=== PATIENT | male | born 1985 | race Caucasian/White ===

== ENCOUNTER 2017-01-17 13:13 | Emergency (ER) | payer BC ==
[~2017-01-17 13:13] MED LIST: BENZONATATE PO; DOXYCYCLINE150 MG PO; FLEXERIL10 MG PO; IBUPROFEN800 MG PO; NAPROSYN500 MG PO; VICODIN PO
== END 2017-01-17 14:10 | disposition home or self-care (01) ==
LOC: CED 13:13
DX: T40.1X1A Poisoning by heroin, accidental (unintentional), initial encounter (principal); Y92.9 Unspecified place or not applicable; F19.90 Other psychoactive substance use, unspecified, uncomplicated; F17.210 Nicotine dependence, cigarettes, uncomplicated
CPT/HCPCS: 96374; 99283; J2310

== ENCOUNTER 2017-01-17 16:16 | Emergency (ER) | payer BC | END 2017-01-17 17:54 | disposition home or self-care (01) | LOC: CED 16:16 | DX: F11.10 Opioid abuse, uncomplicated (principal); F17.200 Nicotine dependence, unspecified, uncomplicated | CPT/HCPCS: 99282 ==

== ENCOUNTER 2017-07-04 15:22 | Emergency (ER) | payer OTHER ==
[~2017-07-04] VITALS: Ht 182.9 cm; Wt 77.1 kg
== END 2017-07-04 17:00 | disposition home or self-care (01) ==
LOC: CED 15:22
DX: L02.01 Cutaneous abscess of face (principal); F17.200 Nicotine dependence, unspecified, uncomplicated
CPT/HCPCS: 99282

== ENCOUNTER 2017-07-19 16:16 | Emergency (ER) | payer OTHER ==
[~2017-07-19] VITALS: Ht 182.9 cm; Wt 74.8 kg
== END 2017-07-19 17:15 | disposition home or self-care (01) ==
LOC: CED 16:16 → CFTX 16:16
DX: L03.211 Cellulitis of face (principal); F17.210 Nicotine dependence, cigarettes, uncomplicated; Z79.1 Long term (current) use of non-steroidal anti-inflammatories (NSAID); Z79.899 Other long term (current) drug therapy
CPT/HCPCS: 99282

== ENCOUNTER 2017-07-22 20:43 | Emergency (ER) | payer OTHER ==
[2017-07-23 00:22] LABS: BASOPHIL# 0.1 X10e3 (0-0.3); EOSINOPHIL# 0.2 X10e3 (0-0.7); EOSINOPHIL% 3.5 % (0.0-7.0); HEMATOCRIT 46.5 % (38.0-50.0); HEMOGLOBIN 15.6 gm/dL (13.0-16.0); LYMPHOCYTE# 2.1 X10e3 (1.0-3.5); LYMPHOCYTE% 32.1 % (17.0-45.0); MEAN CELL VOLUME 86.5 FL (83-96); MEAN CORPUSCULAR HEMOGLOBIN 29.1 PG (28-34); MEAN CORPUSCULAR HGB CONC 33.6 g/dL (30-36); MEAN PLATELET VOLUME 8.8 FL (6.5-11.5); MONOCYTE# 0.4 X10e3 (0-1.0); MONOCYTE% 6.7 % (3.0-12.0); NEUTROPHIL# 3.7 X10e3 (1.5-7.1); NEUTROPHIL% 56.7 % (40-75); PLATELET COUNT 158 X10e3 (140-420); RED BLOOD COUNT 5.38 X10e (3.90-5.60); RED CELL DISTRIBUTION WIDTH 12.6 % (11.0-15.5); WHITE BLOOD COUNT 6.6 X10e3 (4.0-10.5)
[2017-07-23 00:24] LABS: DIFF IND NO
[2017-07-23 00:43] LABS: BUN/CREATININE RATIO 15.38; CALCIUM SERUM 9.4 mg/dL (8.4-10.2); CREATININE SERUM 1.3 mg/dL (0.6-1.4); GLOM FILT RATE Estimated 73.2 mL/min (>60); POTASSIUM 3.8 mmol/L (3.5-5.1)
== END 2017-07-23 01:09 | disposition home or self-care (01) ==
LOC: CFTX 20:43 → CED 20:43 → CFTX 23:35
PROVIDERS: Nurse Practitioner
DX: R21 Rash and other nonspecific skin eruption (principal); F17.200 Nicotine dependence, unspecified, uncomplicated
CPT/HCPCS: 36415; 80048; 85025; 96361; 96374; 96375; 99283; J1200; J1885